=== PATIENT | male | born 1945 | race Caucasian/White ===

== ENCOUNTER 2023-08-28 23:56 | Inpatient (IN) | payer MEDICARE ==
[2023-08-29 00:34] LABS: #Eosinphils 0.2 thou/uL (0.0-0.7); #Monocytes 0.4 thou/uL (0.11-0.59); %Basophils 0.3 % (0.0-1.0); %Eosinophils 4.3 % (0.0-10.0); %Lymphocytes 4.8 % (21.0-51.0); %Monocytes 9.9 % (0.0-10.0); %Neutrophils 80.4 % (42.0-75.0); Hematocrit 26.4 % (42.0-52.0); Hemoglobin 8.8 g/dL (14.0-18.0); Mean Corpuscular HGB CONC 33.3 g/dL (32.0-36.0); Mean Corpuscular Hemoglobin 30.1 pg (27.0-31.0); Mean Corpuscular Volume 90.4 fl (78.0-98.0); Mean Platelet Volume 10.3 fL (7.4-10.4); RBC Distribution Width 14.8 % (11.5-14.5); Red Blood Cell (RBC) Count 2.92 mill/uL (4.70-6.10); White Blood Cell (WBC) Count 3.7 10x3/uL (4.8-10.8)
[2023-08-29] MEDS ORDERED: Glucagon 1 MG/ML KIT ONE (00:34)
[2023-08-29 00:39] LABS: Critical Call w/ Read Back Y; Platelet Count 48 10x3/uL (130-400)
[2023-08-29 00:47] LABS: ALT (SGPT) 26 U/L (8-55); AST (SGOT) 55 U/L (5-34); Albumin 2.7 g/dL (3.4-4.8); Alkaline Phosphatase 116 U/L (40-110); Anion Gap 12 mmol/L (10-20); BUN (Urea Nitrogen) 18 mg/dL (8.4-25.7); Bilirubin, Total 0.6 mg/dL (0.2-1.2); Calc. Creatinine Clearance 0 mL/min (70-130); Carbon Dioxide 12 mmol/L (23-31); Chloride 113 mmol/L (98-107); Estimated GFR 81; Globulin 2.7 g/dL (2.4-3.5); Glucose 56 mg/dL (83-110); Lipase 86 U/L (8-78); Magnesium 1.7 mg/dL (1.6-2.6); Potassium 4.3 mmol/L (3.5-5.1); Protein, Total 5.4 g/dL (5.8-8.1); Sodium 133 mmol/L (136-145)
[2023-08-29 00:51] LABS: Calcium 6.7 mg/dL (7.8-10.44); Critical Call Chemistry NUR.MB20; Troponin I Less than 0.010 ng/mL (< 0.028)
[2023-08-29] MEDS ORDERED: CALCIUM GLUC 1 GM (50 ML) BAG ONE (01:05)
[2023-08-29] MEDS ORDERED: Ondansetron ODT 4 MG TAB SL PRN (01:45)
[2023-08-29] MEDS ORDERED: Ondansetron PF 4 MG/2 ML Vial IVP PRN (01:45)
[2023-08-29] MEDS ORDERED: Acetaminophen 325 MG TAB PO PRN (01:45)
[2023-08-29 01:54] LABS: Influenza A by NAA DETECTED (NotDetected); Influenza B by NAA Not Detected (NotDetected); SARS-CoV-2 NAA Rapid Test DETECTED (NotDetected)
[2023-08-29] MEDS ORDERED: Ipratropium/Albuterol 3 ML NEB NEB PRN (01:56)
[2023-08-29] MEDS ORDERED: Dextrose 50% Abboject 50 ML SYRINGE SLOW IVP PRN (02:01)
[2023-08-29] MEDS ORDERED: Glucagon 1 MG/ML KIT IM PRN (02:01)
[2023-08-29] MEDS ORDERED: Dextrose 5% in Water 1,000 ML IV PRN (02:01)
[2023-08-29 02:23] LABS: Hemoglobin A1c 5.8 % (4.0-6.0)
[2023-08-29 02:36] LABS: Bacteria/HPF None Seen HPF (None Seen); Bilirubin Negative (Negative); Blood, Urine Negative (Negative); CAUTI Indications for Culture Alt mental st,lethar; Clarity Clear (Clear); Glucose, Urine (Dipstick) Normal (Negative); Ketone, Urine Negative (Negative); Leukocyte Negative Leu/uL (Negative); Nitrite Negative (Negative); Protein, Urine (Dipstick) Negative (Neg-Trace); RBC/HPF None Seen HPF (0-3); Specific Gravity, Urine 1.014 (1.002-1.036); Squamous Epithelial None Seen HPF (0-3); Urobilinogen Normal mg/dL (Less than 2); WBC/HPF 0-3 HPF (0-3)
[2023-08-29 02:42] LABS: Urine Culture Reflex No No
[2023-08-29 03:28] LABS: #Eosinphils 0.1 thou/uL (0.0-0.7); #Monocytes 0.3 thou/uL (0.11-0.59); #Neutrophils 2.3 thou/uL (1.40-6.50); %Basophils 0.3 % (0.0-1.0); %Eosinophils 2.4 % (0.0-10.0); %Lymphocytes 6.3 % (21.0-51.0); %Monocytes 9.8 % (0.0-10.0); %Neutrophils 80.9 % (42.0-75.0); Hematocrit 29.5 % (42.0-52.0); Hemoglobin 9.3 g/dL (14.0-18.0); Mean Corpuscular HGB CONC 31.5 g/dL (32.0-36.0); Mean Corpuscular Hemoglobin 29.4 pg (27.0-31.0); Mean Platelet Volume 10.2 fL (7.4-10.4); RBC Distribution Width 14.8 % (11.5-14.5); Red Blood Cell (RBC) Count 3.16 mill/uL (4.70-6.10); White Blood Cell (WBC) Count 2.9 10x3/uL (4.8-10.8)
[2023-08-29 03:29] LABS: Mean Corpuscular Volume 93.4 fl (78.0-98.0); Platelet Count 48 10x3/uL (130-400)
[2023-08-29] MEDS: Dextrose 10% in Water 1,000 ML IV SCH ×2 (04:16→04:29)
[2023-08-29 04:34] LABS: Anion Gap 13 mmol/L (10-20); BUN (Urea Nitrogen) 21 mg/dL (8.4-25.7); Calc. Creatinine Clearance 0 mL/min (70-130); Calcium 8.4 mg/dL (7.8-10.44); Carbon Dioxide 15 mmol/L (23-31); Chloride 105 mmol/L (98-107); Estimated GFR 57; Glucose 56 mg/dL (83-110); Potassium 4.7 mmol/L (3.5-5.1); Sodium 128 mmol/L (136-145)
[2023-08-29] MEDS ORDERED: Famotidine 20 MG TAB ONE (08:39)
[2023-08-29] MEDS ORDERED: Oseltamivir 75 MG CAP ONE (08:39)
[2023-08-29] MEDS ORDERED: Lactulose 20 GM (30 mL) UDCUP ONE (08:39)
[2023-08-29] MEDS: Lactulose 20 GM (30 mL) UDCUP PO SCH (09:45)
[2023-08-29] MEDS: Oseltamivir 75 MG CAP PO SCH (09:45)
[2023-08-29] MEDS: Famotidine 20 MG TAB PO SCH (09:45)
[2023-08-29 10:54] LABS: INR-International Normal Ratio 1.5; Prothrombin Time 17.8 sec (12.0-14.7)
[2023-08-29 10:55] LABS: PTT 34.8 sec (22.9-36.1)
[2023-08-29] MEDS ORDERED: Iopamidol-370 76% 500 ML MDV (1 ML CHARGE) ONE (11:01)
[2023-08-29 12:18] VITALS: BMI 29.5
[2023-08-29] MEDS: Enoxaparin 100 MG (1 mL) SYRINGE SC SCH (16:57)
[2023-08-29] MEDS: Guaifenesin DM 100-10/5 ML UDCUP PO PRN (16:57)
[2023-08-29] MEDS ORDERED: Octreotide Acetate 100 MCG/ML VIAL SLOW IVP SCH (19:15)
[2023-08-29 20:40] LABS: ALT (SGPT) 31 U/L (8-55); AST (SGOT) 53 U/L (5-34); Albumin 3.2 g/dL (3.4-4.8); Alkaline Phosphatase 131 U/L (40-110); Anion Gap 12 mmol/L (10-20); BUN (Urea Nitrogen) 19 mg/dL (8.4-25.7); Calc. Creatinine Clearance 55 mL/min (70-130); Calcium 8.6 mg/dL (7.8-10.44); Carbon Dioxide 15 mmol/L (23-31); Chloride 104 mmol/L (98-107); Estimated GFR 48; Globulin 3.1 g/dL (2.4-3.5); Glucose 221 mg/dL (83-110); Potassium 4.7 mmol/L (3.5-5.1); Protein, Total 6.3 g/dL (5.8-8.1); Sodium 126 mmol/L (136-145)
[2023-08-29] MEDS: Dextrose 5%-Lactated Ringers 1,000 ML IV SCH (20:44)
[2023-08-30] MEDS ORDERED: Enoxaparin 100 MG (1 mL) SYRINGE SC SCH (04:00)
[2023-08-30 08:42] LABS: Anion Gap 13 mmol/L (10-20); BUN (Urea Nitrogen) 18 mg/dL (8.4-25.7); Calc. Creatinine Clearance 59 mL/min (70-130); Calcium 8.3 mg/dL (7.8-10.44); Carbon Dioxide 14 mmol/L (23-31); Chloride 105 mmol/L (98-107); Estimated GFR 53; Glucose 165 mg/dL (83-110); Potassium 4.5 mmol/L (3.5-5.1); Sodium 127 mmol/L (136-145)
[2023-08-30] MEDS: Pantoprazole 40 MG VIAL IVP SCH (08:43)
[2023-08-30 08:47] LABS: Hematocrit 24.6 % (42.0-52.0); Manual Diff?? YES; Mean Corpuscular HGB CONC 32.5 g/dL (32.0-36.0); Mean Corpuscular Hemoglobin 29.7 pg (27.0-31.0); Mean Corpuscular Volume 91.4 fl (78.0-98.0); Mean Platelet Volume 10.1 fL (7.4-10.4); RBC Distribution Width 14.7 % (11.5-14.5); Red Blood Cell (RBC) Count 2.69 mill/uL (4.70-6.10); White Blood Cell (WBC) Count 1.6 10x3/uL (4.8-10.8)
[2023-08-30 09:01] LABS: Delete Auto Diff?? YES; Platelet Count 39 10x3/uL (130-400)
[2023-08-30 09:24] LABS: Anisocytosis SLIGHT = 6-15 cells HPF (0-5); Band 6 % (5-11); CellaVision Operator ID LAB.KW3; Large Platelets 2.9 % (0-5); Lymphocytes 17 % (21-51); Monocytes 12 % (0-10); Neutrophil 66 % (42-75); Platelet Adequacy Comment Significant decrease; Polychromasia SLIGHT = 2-3 cells HPF (0-2); Total Cell Count 103
[2023-08-30] MEDS: Oseltamivir 6 MG/ML ORAL SUSP PO SCH (20:58)
[2023-08-31 04:52] LABS: #Eosinphils 0.2 thou/uL (0.0-0.7); #Monocytes 0.3 thou/uL (0.11-0.59); #Neutrophils 1.4 thou/uL (1.40-6.50); %Basophils 0.5 % (0.0-1.0); %Eosinophils 7.4 % (0.0-10.0); %Lymphocytes 12.6 % (21.0-51.0); %Monocytes 12.6 % (0.0-10.0); %Neutrophils 66.4 % (42.0-75.0); Hematocrit 24.6 % (42.0-52.0); Hemoglobin 7.9 g/dL (14.0-18.0); Mean Corpuscular HGB CONC 32.1 g/dL (32.0-36.0); Mean Corpuscular Hemoglobin 29.4 pg (27.0-31.0); Mean Corpuscular Volume 91.4 fl (78.0-98.0); Mean Platelet Volume 9.7 fL (7.4-10.4); RBC Distribution Width 14.8 % (11.5-14.5); Red Blood Cell (RBC) Count 2.69 mill/uL (4.70-6.10); White Blood Cell (WBC) Count 2.2 10x3/uL (4.8-10.8)
[2023-08-31 05:26] LABS: Anion Gap 12 mmol/L (10-20); BUN (Urea Nitrogen) 16 mg/dL (8.4-25.7); Calc. Creatinine Clearance 64 mL/min (70-130); Calcium 8.5 mg/dL (7.8-10.44); Carbon Dioxide 16 mmol/L (23-31); Chloride 108 mmol/L (98-107); Estimated GFR 58; Glucose 125 mg/dL (83-110); Potassium 4.6 mmol/L (3.5-5.1); Sodium 131 mmol/L (136-145)
[2023-08-31 05:28] LABS: Platelet Count 42 10x3/uL (130-400)
[2023-08-31 09:03] LABS: Phosphorus 2.8 mg/dL (2.3-4.7)
[2023-08-31] MEDS ORDERED: Dextrose 5%-Lactated Ringers 1,000 ML IV SCH (17:38)
[2023-08-31] MEDS: Cholecalciferol 1,000 UNITS (25 MCG) TAB PO SCH (21:19)
[2023-08-31] MEDS: Multivit, Therapeutic 1 TAB PO SCH (21:19)
[2023-08-31] MEDS: Zinc Sulfate 220 MG CAP PO SCH (21:19)
[2023-08-31] MEDS: Sodium Bicarbonate Tab 325 MG TAB PO SCH (21:19)
[2023-09-01 06:56] LABS: #Eosinphils 0.1 thou/uL (0.0-0.7); #Monocytes 0.2 thou/uL (0.11-0.59); #Neutrophils 2.1 thou/uL (1.40-6.50); %Basophils 0.4 % (0.0-1.0); %Eosinophils 3.3 % (0.0-10.0); %Lymphocytes 10.7 % (21.0-51.0); %Monocytes 8.5 % (0.0-10.0); %Neutrophils 76.4 % (42.0-75.0); Hematocrit 26.1 % (42.0-52.0); Hemoglobin 8.4 g/dL (14.0-18.0); Mean Corpuscular HGB CONC 32.2 g/dL (32.0-36.0); Mean Corpuscular Hemoglobin 29.6 pg (27.0-31.0); Mean Corpuscular Volume 91.9 fl (78.0-98.0); Mean Platelet Volume 10.7 fL (7.4-10.4); RBC Distribution Width 14.7 % (11.5-14.5); Red Blood Cell (RBC) Count 2.84 mill/uL (4.70-6.10); White Blood Cell (WBC) Count 2.7 10x3/uL (4.8-10.8)
[2023-09-01 06:59] LABS: Platelet Count 46 10x3/uL (130-400)
[2023-09-01 07:18] LABS: Anion Gap 14 mmol/L (10-20); BUN (Urea Nitrogen) 19 mg/dL (8.4-25.7); Calc. Creatinine Clearance 63 mL/min (70-130); Calcium 8.2 mg/dL (7.8-10.44); Carbon Dioxide 15 mmol/L (23-31); Chloride 107 mmol/L (98-107); Estimated GFR 57; Glucose 142 mg/dL (83-110); Sodium 131 mmol/L (136-145)
[2023-09-01] MEDS: Ascorbic Acid 500 mg Chewable Tablet PO SCH (08:55)
[2023-09-01] MEDS: Albumin 25% 25 GM (100 mL) BOT IVPB SCH (12:52)
[2023-09-01] MEDS: Albuterol 200 PUFF (6.7GM INHALER) INH PRN (18:46)
[2023-09-02 10:02] LABS: ALT (SGPT) 19 U/L (8-55); AST (SGOT) 27 U/L (5-34); Albumin 3.6 g/dL (3.4-4.8); Alkaline Phosphatase 106 U/L (40-110); Anion Gap 12 mmol/L (10-20); BUN (Urea Nitrogen) 18 mg/dL (8.4-25.7); Bilirubin, Total 1.5 mg/dL (0.2-1.2); Calc. Creatinine Clearance 65 mL/min (70-130); Calcium 8.5 mg/dL (7.8-10.44); Carbon Dioxide 18 mmol/L (23-31); Chloride 106 mmol/L (98-107); Estimated GFR 59; Globulin 2.7 g/dL (2.4-3.5); Glucose 191 mg/dL (83-110); Potassium 4.7 mmol/L (3.5-5.1); Protein, Total 6.3 g/dL (5.8-8.1); Sodium 131 mmol/L (136-145)
[2023-09-03] MEDS: Benzonatate 100 MG CAP PO PRN (12:30)
[2023-09-06 07:55] VITALS: TEMP 97.6
[2023-09-06 14:26] VITALS: BP 112/68
== END 2023-09-06 14:26 | DRG 637 ==
LOC: ERS 23:56 → IMCU/EMU 08-29 01:31 → ERHOLD 08-29 01:34 → INTOOBSV 08-29 01:34 → OBSVTOIN 08-29 13:20 → IMCU/EMU 08-29 14:54 → T4-A 08-30 18:20
PROVIDERS: ADMIT Hospitalist; ATTEND Internal Medicine
PROC: 30233J1 Transfusion of Nonautologous Serum Albumin into Peripheral Vein, Percutaneous Approach (ICD-10-PCS; principal; 2023-09-01)
DX: E11.649 Type 2 diabetes mellitus with hypoglycemia without coma (principal); U07.1 COVID-19; E87.1 Hypo-osmolality and hyponatremia; D61.818 Other pancytopenia; K76.6 Portal hypertension; R18.8 Other ascites; E87.20 Acidosis, unspecified; I85.10 Secondary esophageal varices without bleeding; J10.1 Influenza due to other identified influenza virus with other respiratory manifestations; T38.3X5A Adverse effect of insulin and oral hypoglycemic [antidiabetic] drugs, initial encounter; K75.81 Nonalcoholic steatohepatitis (NASH); K74.60 Unspecified cirrhosis of liver; K80.20 Calculus of gallbladder without cholecystitis without obstruction; K63.89 Other specified diseases of intestine; N17.9 Acute kidney failure, unspecified; N18.30 Chronic kidney disease, stage 3 unspecified; E11.22 Type 2 diabetes mellitus with diabetic chronic kidney disease; I12.9 Hypertensive chronic kidney disease with stage 1 through stage 4 chronic kidney disease, or unspecified chronic kidney disease; I81 Portal vein thrombosis; E83.51 Hypocalcemia; E83.42 Hypomagnesemia
CPT/HCPCS: 36415; 36416; 71045; 74177; 80048; 80053; 81001; 82140; 82533; 83036; 83525; 83690; 83735; 84100; 84484; 84681; 85025; 85610; 85730; 87040; 93005; 93010; 96365; 96375; C9113; J0613; J1611; J1650; P9047; Q9967